=== PATIENT | female | born 1970 | race Two or more races ===

== ENCOUNTER 2017-04-02 21:05 | Emergency (ER) | payer OTHER, SELFPAY ==
[~2017-04-02] VITALS: Ht 165.1 cm; Wt 76.5 kg
[2017-04-02] MEDS ORDERED: METOCLOPRAMIDE 5 MG/ML, 2ML ONE (21:40)
[2017-04-02] MEDS ORDERED: DIPHENHYDRAMINE 50 MG/ML, 1ML ONE (21:40)
[2017-04-02] MEDS ORDERED: KETOROLAC 30 MG/1 ML ONE (21:40)
[2017-04-02] MEDS ORDERED: DIPHENHYDRAMINE 50 MG/ML, 1ML IVPush ONE (22:00)
[2017-04-02] MEDS ORDERED: SODIUM CHLORIDE 0.9% 1,000ML IVBOLUS ONE (22:00)
[2017-04-02] MEDS ORDERED: KETOROLAC 30 MG/1 ML IVPush ONE (22:00)
[2017-04-02] MEDS ORDERED: METOCLOPRAMIDE 5 MG/ML, 2ML IVPush ONE (22:00)
[2017-04-02 22:34] VITALS: BP 150/78
== END 2017-04-02 22:37 | disposition home or self-care (01) ==
LOC: ED 22:02
DX: R51 Headache (principal)
CPT/HCPCS: 96361; 96374; 96375; 99284; J1200; J1885; J2765; J7030